=== PATIENT | female | born 1975 | race Two or more races ===

== ENCOUNTER 2018-11-08 16:53 | Outpatient (CLI) | payer OTHER ==
[~2018-11-08 16:53] MED LIST: CEFTIN250 MG PO; COZAAR100 MG PO
== END 2018-11-08 17:08 | disposition home or self-care (01) ==
LOC: RAD 16:53
DX: M25.521 Pain in right elbow (principal)

== ENCOUNTER → 2020-05-22 10:56 | Outpatient (CLI) | payer OTHER | END | disposition home or self-care (01) | LOC: LAB 10:56 | PROVIDERS: ATTEND Physical Medicine & Rehabilitation | DX: Z20.828 Contact with and (suspected) exposure to other viral communicable diseases (principal); Z11.59 Encounter for screening for other viral diseases; R50.9 Fever, unspecified ==